=== PATIENT | male | born 1940 | race Caucasian/White ===

== ENCOUNTER 2017-04-03 17:50 | Inpatient (IN) | payer MEDICARE, BC ==
[~2017-04-03] VITALS: Ht 180.3 cm; Wt 113.1 kg
[2017-04-03 20:35] LABS: HEMOGLOBIN 12.1 gm/dl (14.0-17.5); RED BLOOD COUNT 4.36 M/UL (4.20-5.50); WHITE BLOOD COUNT 10.5 K/UL (4.5-11.0)
[2017-04-03 21:01] LABS: BUN/CREATININE RATIO 18 (0-10)
[2017-04-04] MEDS ORDERED: ELIQUIS5 MG PO (01:55)
[2017-04-04] MEDS ORDERED: HUMALOG100 UNIT/3 SC (02:00)
[2017-04-04] MEDS ORDERED: VICTOZA 1818 MG/3 ML SC (02:01)
[2017-04-04] MEDS ORDERED: LEVOTHYROXINE100 MCG PO (02:02)
[2017-04-04] MEDS ORDERED: NEURONTIN 300300 MG PO (02:02)
[2017-04-04] MEDS ORDERED: ZYLOPRIM 100 M100 MG PO (02:02)
[2017-04-04] MEDS ORDERED: SOTALOL80 MG PO (02:04)
[2017-04-04] MEDS ORDERED: NORVASC 5 MG TAB5 MG PO (02:04)
[2017-04-04] MEDS ORDERED: CILOSTAZOL50 MG PO (02:05)
[2017-04-04] MEDS ORDERED: LIPITOR TAB 2020 MG PO (02:05)
[2017-04-04] MEDS ORDERED: TRAMADOL-ACETA1 EACH PO (02:06)
[2017-04-04] MEDS ORDERED: LASIX 40 MG TAB40 MG PO (02:07)
[2017-04-04] MEDS ORDERED: ISOSORBIDE MONO30 MG PO (02:09)
[2017-04-04] MEDS ORDERED: LEVEMIR FL100 UNIT/1 SC (02:09)
[2017-04-04 05:49] LABS: HEMOGLOBIN 11.4 gm/dl (14.0-17.5); RED BLOOD COUNT 4.18 M/UL (4.20-5.50); WHITE BLOOD COUNT 11.1 K/UL (4.5-11.0)
[2017-04-04 06:05] LABS: BUN/CREATININE RATIO 16 (0-10)
--- NOTE | 2017-04-05 03:29 | NUR ---
PT. AWAKENED CONFUSED. PLEASE SEE NEURO NOTE FOR COMMENT.
[2017-04-05 05:09] LABS: HEMOGLOBIN 11.6 gm/dl (14.0-17.5); RED BLOOD COUNT 4.26 M/UL (4.20-5.50); WHITE BLOOD COUNT 12.1 K/UL (4.5-11.0)
[2017-04-05 05:24] LABS: BUN/CREATININE RATIO 18 (0-10)
[2017-04-06 06:31] LABS: HEMOGLOBIN 10.4 gm/dl (14.0-17.5); RED BLOOD COUNT 3.81 M/UL (4.20-5.50); WHITE BLOOD COUNT 15.1 K/UL (4.5-11.0)
[2017-04-06 06:46] LABS: BUN/CREATININE RATIO 20 (0-10)
--- NOTE | 2017-04-06 07:11 | NUR ---
0630: PT. ATTEMPTED TO SIT ON BEDSIDE AND DISLODGED MOJICA CATH. LARGE AMOUNT OF BLOOD CLOTS NOTED AROUND MEATUS AND IN TUBING. IRRIGATED WITH STERILE WATER AND RE-INFLATED BULB WITH 10CC'S NS AND APPIED NEW STAT LOCK. DR. SANDOVAL NOTIFIED AT 0705. CONTINUE TO MONITOR BLEEDING. REPORTED TO CHELSY TORRES RN.
--- NOTE | 2017-04-07 03:07 | NUR ---
GARRISON PULLED BY SISSY AVILA
--- NOTE | 2017-04-07 03:31 | NUR ---
hospital security here to watch patient for safety until sitter available. pt. had removed heart electrodes since removal of sitter, but have reapplied and attempted to orient to importance. zamora catheter draining bloody urine.
--- NOTE | 2017-04-07 03:36 | NUR ---
[facility].
[2017-04-07 05:00] LABS: HEMOGLOBIN 9.8 gm/dl (14.0-17.5); RED BLOOD COUNT 3.6 M/UL (4.20-5.50); WHITE BLOOD COUNT 15.5 K/UL (4.5-11.0)
[2017-04-07 05:27] LABS: BUN/CREATININE RATIO 14 (0-10)
--- NOTE | 2017-04-07 06:06 | NUR ---
FOUND PT. WITH CATHETER PULLED OUT OF STATLOCK AND BLEEDING AROUND END OF PENIS. DIRECT PRESSURE WAS HELD AND BLEEDING SUBSIDED. URINE BROWNISH RED WITH SMALL CLOTS. SITTER IS WITH PT., BUT STATES, "HE WAS ROLLING OVER IN BED AND GOT TANGLED IN CATHETER."
--- NOTE | 2017-04-08 01:50 | NUR ---
SITTER/TECH ARLENE WAS CHANGING BRIEF FOR BOWEL MOVEMENT. PT. BECAME MORE SHORT OF BREATH WITH DESAT. STAYING MID 80'S ON 10 LPM HI-FLOW. INCREASED TO 12 LITER HIGH FLOW. RESP. TO ROOM AND SWITCHED TO NON-BREATHER. DR. SU CALLED WITH STAT ORDER FOR ABG AND CXRAY. CONTINUE TO TITRATE 02 AND WEAN DOWN IF PT. TOLERATES.
[2017-04-08 04:18] LABS: HEMOGLOBIN 9.8 gm/dl (14.0-17.5); RED BLOOD COUNT 3.63 M/UL (4.20-5.50)
[2017-04-08 04:47] LABS: BUN/CREATININE RATIO 16 (0-10)
[2017-04-09 05:02] LABS: HEMOGLOBIN 9.2 gm/dl (14.0-17.5); RED BLOOD COUNT 3.44 M/UL (4.20-5.50); WHITE BLOOD COUNT 13.8 K/UL (4.5-11.0)
[2017-04-09 05:48] LABS: BUN/CREATININE RATIO 21 (0-10)
--- NOTE | 2017-04-09 15:08 | NUR ---
ROUND WITH PATIENT TODAY AND CHECKED PATEINT ABD DRAIN, AWARE OF PATIENT DRESSING SOILED. WAS ADVISED TO INFORM MD/RADIOLOGIST. REPORTED TO DR. BROWN OF RADIOLOGIST ADVISEMENT R/T CT SCAN AND RECEIVED ORDER. HAVING DIFFICULTY OF PATIENT O2 SAT MAINTANING ON 90'S, WILL RECEIVED CALL FROM TELEMETRY PATIENT O2 SAT DOWN, DR. UGALDE ROUND TODAY AND RECEIVED ORDER.
[2017-04-10 04:13] LABS: HEMOGLOBIN 9.1 gm/dl (14.0-17.5); RED BLOOD COUNT 3.4 M/UL (4.20-5.50); WHITE BLOOD COUNT 12.9 K/UL (4.5-11.0)
[2017-04-10 04:41] LABS: BUN/CREATININE RATIO 17 (0-10)
[2017-04-11 03:36] LABS: RED BLOOD COUNT 3.71 M/UL (4.20-5.50); WHITE BLOOD COUNT 12.3 K/UL (4.5-11.0)
[2017-04-11 03:54] LABS: BUN/CREATININE RATIO 16 (0-10)
[2017-04-12 05:55] LABS: HEMOGLOBIN 10.6 gm/dl (14.0-17.5); RED BLOOD COUNT 3.91 M/UL (4.20-5.50); WHITE BLOOD COUNT 12.2 K/UL (4.5-11.0)
[2017-04-12 06:19] LABS: BUN/CREATININE RATIO 18 (0-10)
[2017-04-14 05:20] LABS: HEMOGLOBIN 10.7 gm/dl (14.0-17.5); RED BLOOD COUNT 3.85 M/UL (4.20-5.50)
[2017-04-14 05:23] LABS: WHITE BLOOD COUNT 8.8 K/UL (4.5-11.0)
[2017-04-14 05:38] LABS: BUN/CREATININE RATIO 18 (0-10)
[2017-04-15] MEDS ORDERED: AUGMENTIN 875-1 EACH PO (15:25)
[2017-04-15] MEDS ORDERED: PROTONIX 40 MG40 M1 PO (15:25)
[2017-04-15] MEDS ORDERED: EFFER-K 20 MEQ20 MEQ PO (15:26)
== END 2017-04-15 16:11 | disposition home health service (06) | DRG 602 ==
LOC: ER1 17:50 → ZEROF 22:50 → MED SURG 4 04-04 01:04 → CCU 04-09 15:13 → MED SURG 4 04-11 16:41 → M/S 04-12 16:35
PROVIDERS: Emergency Medicine; Family Medicine; Physician Assistant; ADMIT Internal Medicine
PROC: 0W9F30Z Drainage of Abdominal Wall with Drainage Device, Percutaneous Approach (ICD-10-PCS; principal; 2017-04-07)
PROC: 5A09357 Assistance with Respiratory Ventilation, Less than 24 Consecutive Hours, Continuous Positive Airway Pressure (ICD-10-PCS; 2017-04-09)
DX: L02.211 Cutaneous abscess of abdominal wall (principal); J96.01 Acute respiratory failure with hypoxia; G92 Toxic encephalopathy; I50.33 Acute on chronic diastolic (congestive) heart failure; J98.11 Atelectasis; E66.2 Morbid (severe) obesity with alveolar hypoventilation; S37.30XA Unspecified injury of urethra, initial encounter; I48.0 Paroxysmal atrial fibrillation; I25.10 Atherosclerotic heart disease of native coronary artery without angina pectoris; E11.65 Type 2 diabetes mellitus with hyperglycemia; R31.0 Gross hematuria; Y84.6 Urinary catheterization as the cause of abnormal reaction of the patient, or of later complication, without mention of misadventure at the time of the procedure; Y73.1 Therapeutic (nonsurgical) and rehabilitative gastroenterology and urology devices associated with adverse incidents; E87.6 Hypokalemia; E03.9 Hypothyroidism, unspecified; E78.5 Hyperlipidemia, unspecified; I27.2 Other secondary pulmonary hypertension; I73.9 Peripheral vascular disease, unspecified; I08.1 Rheumatic disorders of both mitral and tricuspid valves; E53.8 Deficiency of other specified B group vitamins; N40.0 Benign prostatic hyperplasia without lower urinary tract symptoms; K57.90 Diverticulosis of intestine, part unspecified, without perforation or abscess without bleeding; S00.03XA Contusion of scalp, initial encounter; W17.89XA Other fall from one level to another, initial encounter; Y92.239 Unspecified place in hospital as the place of occurrence of the external cause; Z87.891 Personal history of nicotine dependence; M10.9 Gout, unspecified; Z68.34 Body mass index [BMI] 34.0-34.9, adult; Z79.01 Long term (current) use of anticoagulants; Z79.82 Long term (current) use of aspirin; Z79.1 Long term (current) use of non-steroidal anti-inflammatories (NSAID); Z79.4 Long term (current) use of insulin; Z79.899 Other long term (current) drug therapy; Z88.8 Allergy status to other drugs, medicaments and biological substances; Z88.5 Allergy status to narcotic agent; Z91.041 Radiographic dye allergy status; Z96.611 Presence of right artificial shoulder joint; Z90.49 Acquired absence of other specified parts of digestive tract; Z98.49 Cataract extraction status, unspecified eye; Z98.890 Other specified postprocedural states; Z82.49 Family history of ischemic heart disease and other diseases of the circulatory system; Z83.3 Family history of diabetes mellitus
CPT/HCPCS: 36415; 36600; 70450; 71010; 71020; 72125; 72128; 72131; 73522; 74150; 74176; 80048; 80053; 80202; 81001; 82803; 82962; 83690; 84132; 85025; 85027; 85610; 85730; 87040; 87070; 87102; 87205; 94640; 94660; 94664; 96365; 96375; 96376; 97110; 97116; 97530; 99285; J1120; J1650; J1940; J2270; J2405; J2543; J3370; J7030; J7040; J7050; J7070

== ENCOUNTER → 2021-04-04 | Outpatient (CLI) | payer MEDICARE ==
[~2021-04-04] MED LIST: AUGMENTIN 875-1 EACH PO; CILOSTAZOL50 MG PO; EFFER-K 20 MEQ20 MEQ PO; ELIQUIS5 MG PO; HUMALOG100 UNIT/3 SC; ISOSORBIDE MONO30 MG PO; LASIX 40 MG TAB40 MG PO; LEVEMIR FL100 UNIT/1 SC; LEVOTHYROXINE100 MCG PO; LIPITOR TAB 2020 MG PO; NEURONTIN 300300 MG PO; NORVASC 5 MG TAB5 MG PO; PROTONIX 40 MG40 M1 PO; SOTALOL80 MG PO; TRAMADOL-ACETA1 EACH PO; VICTOZA 1818 MG/3 ML SC; ZYLOPRIM 100 M100 MG PO
[2021-04-04 11:47] LABS: HEMOGLOBIN 14.1 gm/dl (14.0-17.5); RED BLOOD COUNT 4.73 M/UL (4.20-5.50); WHITE BLOOD COUNT 8.3 K/UL (4.5-11.0)
[2021-04-04 12:46] LABS: BUN/CREATININE RATIO 16 (0-10)
[2021-04-06 10:14] LABS: CREATININE, URINE 141.3 mg/dL (Not Estab.)
[2021-04-06 11:15] LABS: CHOLESTEROL, TOTAL 117 mg/dL (100-199); HDL SIZE 9.1 nm (>=9.2); HDL-C 39 mg/dL (>39); HDL-P (TOTAL) 23.9 umol/L (>=30.5); LARGE HDL-P 3.8 umol/L (>=4.8); LARGE VLDL-P 2.9 nmol/L (<=2.7); LDL SIZE 20.8 nm (>20.5); LDL SIZE 20.8 nm (>=20.8); LDL-C 64 mg/dL (0-99); LDL-P 840 nmol/L (<1000); LP-IR SCORE 55 (<=45); SMALL LDL-P 394 nmol/L (<=527); TRIGLYCERIDES 65 mg/dL (0-149); VLDL SIZE 49.2 nm (<=46.6)
== END ==
LOC: LAB 10:44
PROVIDERS: Emergency Medicine
DX: M54.5 Low back pain (principal); Z12.5 Encounter for screening for malignant neoplasm of prostate; I27.29 Other secondary pulmonary hypertension; I34.8 Other nonrheumatic mitral valve disorders; R53.83 Other fatigue; I10 Essential (primary) hypertension; E11.65 Type 2 diabetes mellitus with hyperglycemia; R09.02 Hypoxemia; E78.2 Mixed hyperlipidemia; E03.8 Other specified hypothyroidism; M48.061 Spinal stenosis, lumbar region without neurogenic claudication; M85.80 Other specified disorders of bone density and structure, unspecified site
CPT/HCPCS: 36415; 72110; 80053; 80061; 82043; 82570; 83036; 83704; 84443; 85025; G0103

== ENCOUNTER 2021-08-13 17:10 | Inpatient (IN) | payer MEDICARE ==
[~2021-08-13] VITALS: Ht 180.3 cm; Wt 114.8 kg
[~2021-08-13 17:10] MED LIST changes: -LIPITOR TAB 2020 MG PO; +LIPITOR40 MG PO
[2021-08-13 17:42] LABS: HEMOGLOBIN 13.7 gm/dl (14.0-17.5); RED BLOOD COUNT 4.6 M/UL (4.20-5.50); WHITE BLOOD COUNT 4.5 K/UL (4.5-11.0)
[2021-08-13] MEDS ORDERED: ASPIRIN EC81 MG PO (20:34)
[2021-08-14 04:35] LABS: HEMOGLOBIN 12.6 gm/dl (14.0-17.5); RED BLOOD COUNT 4.2 M/UL (4.20-5.50)
[2021-08-14 04:38] LABS: WHITE BLOOD COUNT 6.1 K/UL (4.5-11.0)
[2021-08-15 05:36] LABS: HEMOGLOBIN 12.9 gm/dl (14.0-17.5); RED BLOOD COUNT 4.36 M/UL (4.20-5.50)
[2021-08-15 05:37] LABS: WHITE BLOOD COUNT 10.3 K/UL (4.5-11.0)
[2021-08-16 08:00] LABS: HEMOGLOBIN 12.4 gm/dl (14.0-17.5); RED BLOOD COUNT 4.34 M/UL (4.20-5.50); WHITE BLOOD COUNT 10.8 K/UL (4.5-11.0)
[2021-08-17 06:06] LABS: HEMOGLOBIN 12.5 gm/dl (14.0-17.5); RED BLOOD COUNT 4.26 M/UL (4.20-5.50); WHITE BLOOD COUNT 11.1 K/UL (4.5-11.0)
[2021-08-18 06:32] LABS: HEMOGLOBIN 12.5 gm/dl (14.0-17.5); RED BLOOD COUNT 4.23 M/UL (4.20-5.50)
[2021-08-18 06:34] LABS: WHITE BLOOD COUNT 22.7 K/UL (4.5-11.0)
[2021-08-19 05:41] LABS: HEMOGLOBIN 11.2 gm/dl (14.0-17.5); RED BLOOD COUNT 3.89 M/UL (4.20-5.50); WHITE BLOOD COUNT 21.6 K/UL (4.5-11.0)
[2021-08-20 06:15] LABS: HEMOGLOBIN 10.6 gm/dl (14.0-17.5); RED BLOOD COUNT 3.64 M/UL (4.20-5.50); WHITE BLOOD COUNT 21.8 K/UL (4.5-11.0)
== END 2021-08-23 01:56 | disposition expired | DRG 207 ==
LOC: ER1 17:10 → CDU 18:22 → CCU 18:22
PROVIDERS: Emergency Medicine; Internal Medicine; Internal Medicine Pulmonary Disease; ADMIT Surgery
PROC: XW033E5 Introduction of Remdesivir Anti-infective into Peripheral Vein, Percutaneous Approach, New Technology Group 5 (ICD-10-PCS; principal; 2021-08-13)
PROC: 3E0333Z Introduction of Anti-inflammatory into Peripheral Vein, Percutaneous Approach (ICD-10-PCS; 2021-08-13)
PROC: 5A0935A Assistance with Respiratory Ventilation, Less than 24 Consecutive Hours, High Flow/Velocity Cannula (ICD-10-PCS; 2021-08-13)
PROC: B24BZZ4 Ultrasonography of Heart with Aorta, Transesophageal (ICD-10-PCS; 2021-08-14)
PROC: 02HV33Z Insertion of Infusion Device into Superior Vena Cava, Percutaneous Approach (ICD-10-PCS; 2021-08-16)
PROC: B548ZZA Ultrasonography of Superior Vena Cava, Guidance (ICD-10-PCS; 2021-08-16)
PROC: 5A1955Z Respiratory Ventilation, Greater than 96 Consecutive Hours (ICD-10-PCS; 2021-08-17)
PROC: 0BH17EZ Insertion of Endotracheal Airway into Trachea, Via Natural or Artificial Opening (ICD-10-PCS; 2021-08-17)
PROC: 3E033XZ Introduction of Vasopressor into Peripheral Vein, Percutaneous Approach (ICD-10-PCS; 2021-08-18)
DX: U07.1 COVID-19 (principal); J80 Acute respiratory distress syndrome; A41.89 Other specified sepsis; R65.21 Severe sepsis with septic shock; J12.82 Pneumonia due to coronavirus disease 2019; N17.0 Acute kidney failure with tubular necrosis; J15.9 Unspecified bacterial pneumonia; J44.0 Chronic obstructive pulmonary disease with (acute) lower respiratory infection; J44.1 Chronic obstructive pulmonary disease with (acute) exacerbation; E87.1 Hypo-osmolality and hyponatremia; E87.3 Alkalosis; E87.4 Mixed disorder of acid-base balance; G93.49 Other encephalopathy; Z66 Do not resuscitate; I12.9 Hypertensive chronic kidney disease with stage 1 through stage 4 chronic kidney disease, or unspecified chronic kidney disease; E11.65 Type 2 diabetes mellitus with hyperglycemia; N18.9 Chronic kidney disease, unspecified; K21.9 Gastro-esophageal reflux disease without esophagitis; E87.8 Other disorders of electrolyte and fluid balance, not elsewhere classified; I48.0 Paroxysmal atrial fibrillation; I44.7 Left bundle-branch block, unspecified; E66.01 Morbid (severe) obesity due to excess calories; E86.1 Hypovolemia; E87.5 Hyperkalemia; D69.6 Thrombocytopenia, unspecified; R31.9 Hematuria, unspecified; I08.1 Rheumatic disorders of both mitral and tricuspid valves; I27.20 Pulmonary hypertension, unspecified; I25.10 Atherosclerotic heart disease of native coronary artery without angina pectoris; E03.9 Hypothyroidism, unspecified; E11.51 Type 2 diabetes mellitus with diabetic peripheral angiopathy without gangrene; I73.9 Peripheral vascular disease, unspecified; Z79.82 Long term (current) use of aspirin; Z79.01 Long term (current) use of anticoagulants; Z79.4 Long term (current) use of insulin; Z95.1 Presence of aortocoronary bypass graft; Z95.5 Presence of coronary angioplasty implant and graft; Z99.81 Dependence on supplemental oxygen; Z68.35 Body mass index [BMI] 35.0-35.9, adult
CPT/HCPCS: ECHO; 31500; 36415; 36600; 43752; 51702; 71045; 73502; 80048; 80053; 80076; 82550; 82553; 82728; 82803; 82962; 83605; 83615; 83690; 83735; 83874; 83880; 84100; 84132; 84484; 85007; 85025; 85027; 85379; 85384; 85610; 85730; 86140; 87040; 87081; 93005; 93306; 94002; 94003; 94640; 94760; 96374; 96375; 99291; C9113; J0330; J0456; J0610; J0692; J0696; J1100; J1650; J2704; J3010; J7030; J7070